=== PATIENT | female | born 1995 | race Caucasian/White ===

== ENCOUNTER 2023-05-14 17:21 | Emergency (ER) | payer MEDICAID ==
[~2023-05-14] VITALS: Ht 165.1 cm; Wt 50.0 kg
[2023-05-14 17:36] VITALS: O2SAT 99
[2023-05-14] MEDS ORDERED: BACITRACIN ZINC OINT UDPKT TOP ONE (17:45)
[2023-05-14 18:34] VITALS: BP 127/78; PULSE 84; RESP 16; TEMP 98.5
== END 2023-05-14 18:35 | disposition home or self-care (01) ==
LOC: ER 17:21
DX: S80.212A Abrasion, left knee, initial encounter (principal); S80.211A Abrasion, right knee, initial encounter; Z00.00 Encounter for general adult medical examination without abnormal findings; X58.XXXA Exposure to other specified factors, initial encounter; Y93.89 Activity, other specified; Y92.89 Other specified places as the place of occurrence of the external cause; Y99.8 Other external cause status
CPT/HCPCS: 99283; Z7610